=== PATIENT | female | born 1955 | race Caucasian/White ===

== ENCOUNTER 2024-12-30 08:45 | Outpatient (CLI) | payer OTHER ==
[2024-12-30 09:30] VITALS: BP 122/76; O2SAT 100
[2024-12-30 10:20] VITALS: BP 138/85; O2SAT 99
[2024-12-30 10:35] VITALS: BP 131/81; O2SAT 99
[2024-12-30 10:50] VITALS: BP 128/81; O2SAT 99
== END 2024-12-31 16:02 | disposition home or self-care (01) ==
LOC: SONOGRAMA 08:45
DX: C50.911 Malignant neoplasm of unspecified site of right female breast (principal); R59.0 Localized enlarged lymph nodes